=== PATIENT | male | born 1955 | race Caucasian/White ===

== ENCOUNTER 2017-09-10 15:49 | Emergency (ER) | payer BC ==
[~2017-09-10] VITALS: Ht 172.7 cm; Wt 102.5 kg
[2017-09-10 15:54] VITALS: Ht 172.7 cm; Wt 102.5 kg
[2017-09-10 17:32] VITALS: BP 131/74
== END 2017-09-10 17:52 | disposition home or self-care (01) ==
LOC: ED 15:49
DX: J06.9 Acute upper respiratory infection, unspecified (principal); J04.0 Acute laryngitis; J45.909 Unspecified asthma, uncomplicated; I10 Essential (primary) hypertension; E11.9 Type 2 diabetes mellitus without complications
CPT/HCPCS: J7512

== ENCOUNTER 2018-06-10 20:10 | Inpatient (IN) | payer BC ==
[~2018-06-10] VITALS: Ht 172.7 cm; Wt 102.5 kg
[2018-06-10 20:11] VITALS: Ht 172.7 cm; Wt 102.5 kg
[2018-06-10 21:31] LABS: BASOPHIL % 0.2 % (0-2); PLATELET COUNT 223 x10^3mcL (130-400)
[2018-06-10 21:34] LABS: CARBON DIOXIDE 27.2 mmol/L (21-32); CREATININE SERUM 1.6 mg/dL (0.7-1.3); POTASSIUM SERUM 3.9 mmol/L (3.5-5.1); RED CELL DISTRIBUTION WIDTH 15.1 % (11.5-14.5)
[2018-06-10 21:47] LABS: ALBUMIN 3.8 g/dL (3.4-5.0); BILIRUBIN TOTAL 0.82 mg/dL (0.20-1.00); FREE T4 0.98 ng/dL (0.76-1.46); TOTAL PROTEIN, SERUM 6.9 g/dL (6.4-8.2)
[2018-06-10] MEDS ORDERED: FIASP 100100 UNIT/2 (22:24)
[2018-06-10] MEDS ORDERED: FENOFIBRATE145 M1 PO (22:25)
[2018-06-10] MEDS ORDERED: ATORVASTATIN CA40 M1 PO (22:25)
[2018-06-10] MEDS ORDERED: NATURE'S BLEND F1 MG PO (22:25)
[2018-06-10] MEDS ORDERED: METFORMIN HCL500 MG PO (22:26)
[2018-06-10] MEDS ORDERED: LOVAZA1 G1 PO (22:26)
[2018-06-10] MEDS ORDERED: ABILIFY10 M2 PO (22:26)
[2018-06-10] MEDS ORDERED: NUVIGIL150 M1 PO (22:27)
[2018-06-10] MEDS ORDERED: HORIZANT600 M1 PO (22:27)
[2018-06-10] MEDS ORDERED: CLONAZEPAM0.5 MG PO (22:27)
[2018-06-10] MEDS ORDERED: AMARYL4 MG PO (22:27)
[2018-06-10] MEDS ORDERED: INVOKANA300 MG PO (22:27)
[2018-06-10] MEDS ORDERED: SYNTHROID0.15 MG PO (22:28)
[2018-06-10] MEDS ORDERED: MAGNESIUM OXID400 MG PO (22:29)
[2018-06-10] MEDS ORDERED: NIASPAN1000 MG PO (22:29)
[2018-06-10] MEDS ORDERED: ASPIR 8181 MG PO (22:29)
[2018-06-10] MEDS ORDERED: MASON NATURAL1000 IU PO (22:30)
[2018-06-10] MEDS ORDERED: MULTIVITAMIN1 SGL PO (22:30)
[2018-06-10 22:59] LABS: CHOLESTEROL/HDL RATIO 2.7; MAGNESIUM 1.6 mg/dL (1.8-2.4); PHOSPHOROUS 2.9 mg/dL (2.5-4.9)
[2018-06-10 23:56] VITALS: BP 128/79
[2018-06-11 01:09] LABS: UA SPECIFIC GRAVITY 1.025 (1.005-1.035); microscopic required? YES
[2018-06-11 01:10] LABS: urine erythrocyte NEGATIVE (NEGATIVE)
[2018-06-11 01:11] VITALS: BP 128/79
[2018-06-11 02:45] LABS: AMPHETAMINE QUAL UR NONE DETECTED (See below)
[2018-06-11 04:13] VITALS: BP 123/78
[2018-06-11 05:53] LABS: BASOPHIL % 0.1 % (0-2); PLATELET COUNT 171 x10^3mcL (130-400)
[2018-06-11 05:56] LABS: RED CELL DISTRIBUTION WIDTH 14.9 % (11.5-14.5)
[2018-06-11 06:06] LABS: CALCIUM 7.8 mg/dL (8.5-10.1); CARBON DIOXIDE 20.4 mmol/L (21-32); CREATININE SERUM 1.4 mg/dL (0.7-1.3); MAGNESIUM 1.9 mg/dL (1.8-2.4); PHOSPHOROUS 2.5 mg/dL (2.5-4.9); POTASSIUM SERUM 5.3 mmol/L (3.5-5.1)
[2018-06-11 08:14] VITALS: BP 133/76
[2018-06-11 14:38] VITALS: BP 124/70
[2018-06-11 18:17] VITALS: BP 130/71
[2018-06-11 21:09] VITALS: BP 126/74
[2018-06-12 05:27] VITALS: BP 117/70
[2018-06-12] MEDS ORDERED: MEDDP PO (09:14)
[2018-06-12] MEDS ORDERED: EPIPEN JR 20.5 MG/ML IM (09:19)
[2018-06-12 10:26] VITALS: BP 124/77
[2018-06-12 10:52] VITALS: BP 124/77
== END 2018-06-12 11:53 | disposition home or self-care (01) | DRG 915 ==
LOC: ED 20:10 → IC 22:15 → DU 06-11 14:30
PROVIDERS: Emergency Medicine; ADMIT Internal Medicine
DX: T78.2XXA Anaphylactic shock, unspecified, initial encounter (principal); J96.01 Acute respiratory failure with hypoxia; N17.0 Acute kidney failure with tubular necrosis; J45.901 Unspecified asthma with (acute) exacerbation; E03.9 Hypothyroidism, unspecified; E83.42 Hypomagnesemia; E78.5 Hyperlipidemia, unspecified; N18.9 Chronic kidney disease, unspecified; E11.22 Type 2 diabetes mellitus with diabetic chronic kidney disease; I12.9 Hypertensive chronic kidney disease with stage 1 through stage 4 chronic kidney disease, or unspecified chronic kidney disease; G47.33 Obstructive sleep apnea (adult) (pediatric); Y92.89 Other specified places as the place of occurrence of the external cause; Z79.82 Long term (current) use of aspirin; Z79.84 Long term (current) use of oral hypoglycemic drugs; Z83.3 Family history of diabetes mellitus; Z82.49 Family history of ischemic heart disease and other diseases of the circulatory system; Z68.33 Body mass index [BMI] 33.0-33.9, adult
CPT/HCPCS: 82962; 83880; 84439; 85378; 87804; A9540; J0171; J1200; J1644; J1815; J2920; J2930; J3490; J7030; J7613; J7620; J7626; Q0092